=== PATIENT | male | born 1955 | race Caucasian/White ===

== ENCOUNTER → 2019-06-08 11:02 | Outpatient (CLI) | payer OTHER, SELFPAY ==
[2019-06-08 11:44] LABS: Absolute Lymphocyte Count 3.19 X10^3/uL (0.83-4.51); Absolute Neutrophil Count 4.6 X10^3/uL (2.0-7.7); Basophil# 0.03 X10^3/uL; Basophil% 0.4 % (0-1); Eosinophils% 1.2 % (0-5); Hematocrit 48.8 % (40-54); Hemoglobin 15.8 g/dL (13.0-16.5); Lymphocyte # 3.19 X10^3/ul (4.0); Lymphocyte % 37.2 % (19-41); Mean Corp Hgb Conc 32.4 g/dL (32-36); Mean Corpuscular Volume 86.4 fL (80-94); Mean Platelet Vol. 10.1 fl (6.2-12.0); Monocyte# 0.66 X10^3/uL; Monocyte% 7.7 % (0-10); NRBC Flagged by Analyzer 0 % (0-5); Neutrophil # 4.58 X10^3/uL (2.7-7.7); Neutrophil % 53.4 % (47-70); Platelet Count 224 K/mm3 (150-450); RBC Distribution Width CV 13.4 % (11.6-14.6); RBC Distribution Width SD 42.6 fl (35.1-43.9); Red Blood Count 5.65 M/mm3 (4.6-6.2); White Blood Count 8.6 K/mm3 (4.4-11.0)
[2019-06-08 11:55] LABS: AST(SGOT) 20 U/L (15-37); Alanine Aminotransfer ALT/SGPT 32 U/L (16-61); Albumin, Serum 3.7 g/dL (3.2-5.0); Alkaline Phosphatase 102 U/L (45-117); Anion Gap 4 (5-15); BUN 16 mg/dL (7-18); BUN/Creat Ratio 13.8 RATIO (10-20); Calcium,Total 8.9 mg/dL (8.5-10.1); Chloride 110 mmol/L (98-107); Cholesterol 209 mg/dL (200); Creatinine, Serum 1.16 mg/dL (0.70-1.30); EST Glomerular Filtration Rate 68 mL/min (>60); Est Glom Filt Rate - Afr Amer 82 mL/min (>60); Globulin 3.8 g/dL (2.2-4.2); Glucose 113 mg/dL (74-106); High Density Lipoprotein 32 mg/dL; Potassium 4.1 mmol/L (3.5-5.1); Protein, Total 7.5 g/dL (6.4-8.2); Sodium Level 141 mmol/L (136-145); Thyroid Stim Hormone (TSH) 1.38 uIU/mL (0.358-3.74); Triglycerides 138 mg/dL; Very Low Density Lipoprotein 28 mg/dL (5-40)
== END ==
PROVIDERS: Family Provider Family Medicine; PCP Family Medicine; Referring Provider Family Medicine; Visit Provider Family Medicine
DX: R53.82 Chronic fatigue, unspecified (principal)
CPT/HCPCS: 36415; 80053; 80061; 84443; 85025

== ENCOUNTER → 2020-01-31 16:39 | Outpatient (CLI) | payer OTHER, SELFPAY ==
[2020-01-31 18:36] LABS: Creatinine, Serum 1.24 mg/dL (0.70-1.30); EST Glomerular Filtration Rate 63 mL/min (>60); Est Glom Filt Rate - Afr Amer 76 mL/min (>60)
--- NOTE | 2020-02-01 | CYSPIN_PTH ---
PATIENT: HELENA HOLT II LOC: LAB U#:[id number] AGE/SX: 69/M ROOM: RE01/31/[address]: Dr. Jarad Lemus MD : [id number] BED: DIS: SPEC #: [id number] RECD: 02/02/20 09:28 STATUS: JAGRUTI RERan #: [id number] TORITO: 02/01/20 00:[address]: Jarad Lemus DEPT: CYTOLOGY RECD BY: Dc Pickard Tissues: Urine Procedures: Pap Stain (control) Special Stain Group II Cytospin Fluid HEADER OPERATION: Not noted PRE-OP DIAGNOSIS: N39.0, R10.9, R31.0, M54.5 TISSUE SUBMITTED: Urine for cytology DIAGNOSIS CYTOLOGY Urine for cytology (cytospin): A few clusters of mildly atypical urothelial cells noted. See comment. DONAVAN:sonia 02/03/20 COMMENT Clinical correlation and appropriate follow up are necessary. CYTOLOGY STUDY Slides are reviewed. CYTOLOGY GROSS Received is 60 ml of cloudy yellow fluid labeled with the patient's name and and designated per the requisition as urine. Submitted for cytology preparation. / sonia 02/02/20 TC:5 CPT: 48334
[2020-02-01 13:37] LABS: Cytology, Body Fluid / CSF SEE PATHOLOGY REPORT
== END ==
PROVIDERS: PCP Family Medicine; Visit Provider Family Medicine
DX: Z01.812 Encounter for preprocedural laboratory examination (principal); N39.0 Urinary tract infection, site not specified; R10.9 Unspecified abdominal pain; R31.0 Gross hematuria; M54.5 Low back pain
CPT/HCPCS: 36415; 82565; 87086; 87088; 88108; 88313

== ENCOUNTER → 2020-02-01 13:32 | Outpatient (CLI) | payer OTHER, SELFPAY | PROVIDERS: PCP Family Medicine; Referring Provider Family Medicine; Visit Provider Family Medicine | DX: N39.0 Urinary tract infection, site not specified (principal); R10.9 Unspecified abdominal pain; R31.0 Gross hematuria; M54.5 Low back pain | CPT/HCPCS: 87086 ==

== ENCOUNTER → 2020-02-17 14:45 | Outpatient (CLI) | payer OTHER, SELFPAY ==
--- NOTE | 2020-02-17 14:48 | CT_ITS ---
STUDY: CT ABDOMEN AND PELVIS WITH CONTRAST REASON FOR EXAM: Male, 64 years old. Right flank pain RADIATION DOSAGE (If Supplied By Facility): CTDIvol = ( 6.15 ) mGy, DLP = ( 1208.84 ) mGycm TECHNIQUE: Transaxial images were obtained from the dome of the diaphragm to the symphysis pubis with oral contrast. 100 ml of ISOVUE-300 contrast was administered. Sagittal and coronal images were reconstructed. Individualized dose optimization techniques were used for this CT. COMPARISON: None. FINDINGS: The visualized lung bases are clear. The visualized portions of the heart and pericardium are within normal limits. There are no calcified gallstones present. The liver is low in density, consistent with fatty infiltration. The spleen is normal in size. The pancreas is within normal limits. The adrenal glands are within normal limits. There are no renal or ureteral stones. There is no hydronephrosis. There is a 4.2 cm simple cyst in the right kidney. This is a benign lesion and no further follow-up is necessary. There are no left renal lesions. There are stones in the urinary bladder, measuring up to 9 mm. The prostate is enlarged, measuring 7.4 x 6.9 x 6.7 cm. Normal visualized stomach. There is no bowel obstruction or inflammation. The appendix is visualized and appears normal. The aorta is normal in caliber. There is no abdominal or pelvic free air, free fluid, fluid collection or lymphadenopathy. There are no destructive osseous lesions. There are degenerative changes noted in the spine. CT/Abdomen/Pelvis WITH Contrast IMPRESSION: No urinary calculi. No hydronephrosis. Stones in the urinary bladder measuring up to 9 mm. Enlarged prostate. No bowel obstruction or inflammation. Normal appendix. Fatty liver. Electronically Signed: Toi Sánchez, at 20:26 EDT Tel , Service support ,
== END ==
PROVIDERS: PCP Family Medicine; Referring Provider Family Medicine; Visit Provider Family Medicine
DX: R10.9 Unspecified abdominal pain (principal); M54.5 Low back pain
CPT/HCPCS: 74177; Q9967

== ENCOUNTER → 2020-03-01 11:15 | Outpatient (CLI) | payer OTHER, SELFPAY ==
[2020-03-01 13:34] LABS: PSA,Total - Annual Screen 5.03 ng/mL (0.00-4.00)
== END ==
PROVIDERS: PCP Family Medicine
DX: Z12.5 Encounter for screening for malignant neoplasm of prostate (principal)
CPT/HCPCS: 36415; 84153; G0103

== ENCOUNTER → 2021-01-17 11:18 | Outpatient (CLI) | payer OTHER, SELFPAY ==
[2021-01-17 11:56] LABS: PSA,Total - Annual Screen 5.03 ng/mL (0.00-4.00)
== END ==
LOC: PAVLAB 11:21
PROVIDERS: PCP Family Medicine
DX: Z12.5 Encounter for screening for malignant neoplasm of prostate (principal)
CPT/HCPCS: 36415; 84153; G0103

== ENCOUNTER → 2022-01-04 | Outpatient (CLI) | payer MEDICARE, OTHER, SELFPAY ==
[2022-01-04 12:45] LABS: PSA,Total- Diagnostic 3.78 ng/mL (0.0-4.0)
== END | disposition home or self-care (01) ==
LOC: PAVLAB 11:48
PROVIDERS: PCP Family Medicine
DX: R97.20 Elevated prostate specific antigen [PSA] (principal)
CPT/HCPCS: 36415; 84153

== ENCOUNTER → 2022-07-22 | Outpatient (CLI) | payer MEDICARE, OTHER, SELFPAY ==
[2022-07-22 10:46] LABS: PSA,Total- Diagnostic 3.34 ng/mL (0.0-4.0)
== END | disposition home or self-care (01) ==
LOC: PAVLAB 10:06
PROVIDERS: PCP Family Medicine
DX: R97.20 Elevated prostate specific antigen [PSA] (principal)
CPT/HCPCS: 36415; 84153

== ENCOUNTER 2022-12-20 17:37 | Emergency (ER) | payer MEDICARE, OTHER, SELFPAY ==
[2022-12-20 17:38] VITALS: BP 133/80; PULSE 69; RESP 18; TEMP 36.6; O2SAT 96; BMI 32.0
--- NOTE | 2022-12-20 18:26 | EX.ED.VIS.EY ---
HPI <INDIO Mclaughlin - Last Filed: 12/20/22 20:57> History of Present Illness Chief Complaint: Eye Problem Narrative Narrative: 3 days ago patient was working on a project and got sawdust in his right eye. He washed it out and has had no pain but woke up the next day and there was redness in the lower part of his eye. He has no discomfort, no visual changes, and no tearing or drainage. He does not wear glasses or contacts. PFSH <INDIO Mclaughlin - Last Filed: 12/20/22 20:57> PFS Medical History no medical history Allergy/AdvReac Type Severity Reaction Status Date / Time No Known Allergies Allergy Verified 12/20/22 17:38 Social History Smoking Status: Unknown if ever smoked ROS <INDIO Mclaughlin - Last Filed: 12/20/22 20:57> ROS ED ROS Narrative Constitutional: Negative for fever, chills, malaise. Eyes: Negative for visual change. Neuro: Negative for headache. Skin: Negative for rash. EXAM <INDIO Mclaughlin Last Filed: 12/20/22 20:57> Physical Exam Narrative Exam Narrative: CONST: Patient sitting in no acute distress. EYES: Subconjunctival hemorrhage on lower half of right eye. Otherwise normal inspection, PERRLA, EOMI, no chemosis or hyphema. No eyelid edema or erythema. ENT: Normal inspection. NECK: Normal inspection. RESP: No respiratory distress, CTAB. CVS: Regular rate and rhythm, no murmur, no gallop. SKIN: Color normal, no rash, warm, dry, intact. EXTREMITIES: Normal appearance, no pedal edema. NEURO: Oriented x4. PSYCH: Normal affect. Const Vital Signs: 12/20/22 17:38 Temperature 97.8 F Temperature Source Temporal Pulse Rate 69 Respiratory Rate 18 Blood Pressure 133/80 H Blood Pressure Mean 97 Pulse Ox 96 Oxygen Delivery Method Room Air MDM <INDIO Mclaughlin Last Filed: 12/20/22 20:57> [facility] MDM Narrative Medical decision making narrative: He states he got sawdust in the eye a few days ago and has no pain but was concerned about this redness. It is consistent with a right subconjunctival hemorrhage. I applied tetracaine and fluorescein stain and examined his eye under the slit-lamp. There is no foreign body or abnormality. He was reassured that this subconjunctival hemorrhage will go away without intervention but if symptoms develop to see an eye doctor. He was discharged in stable condition. <Dr. Luis Magaña MD - Last Filed: 12/20/22 23:46> [facility] Treatment and Re-Evaluation Narrative: I have personally performed a face to face assessment of the patient and have reviewed the CHRISTA Note. I performed a substantive portion of the visit including all aspects of the following. My cameron findings include: History: Patient stated he noticed redness on his right eye. But it does not hurt itch or bother him at all. No visual changes. He states yesterday he got some sawdust in there and washed it out but he thought everything was fine. He is not on any blood thinners. Exam: Exam shows a small to moderate subconjunctival hemorrhage on the right. Range of motion is normal. Pupillary function is normal. There is no discharge. No lid swelling. No vesicles. Medical Decision Making: We explained what this represents. Staining was done that showed no corneal abrasion. We discussed reasons to return Discharge Plan Triage Chief Complaint: Eye Problem ED Midlevel Provider: Thu Hadley ED Provider: Luis Magaña Dx/Rx/DC Orders Clinical Impression: Subconjunctival hemorrhage of right eye Instructions: ED Subconjunctival Hemorrhage Primary Care Provider: Jarad Lemus Referrals: Jarad Lemus MD [Primary Care Provider] - Activity Restrictions/Additional Instructions: There is no evidence of foreign body or scratches on your eye. You have a subconjunctival hemorrhage which is from burst blood vessels that will resolve over the next few days to weeks. Disposition Disposition: Home, Self Care Discharge Date/Time: 12/20/22 19:18
[2022-12-20] MEDS: Tetracaine 0.5% Ophthalmic Bottle 1 DRP LEFT EYE (18:37)
[2022-12-20] MEDS: Fluorescein 1 MG STRIP 1 STRIP RIGHT EYE (18:37)
== END 2022-12-20 19:18 | disposition home or self-care (01) ==
LOC: ED 19:04
PROVIDERS: Emergency Provider Emergency Medicine; PCP Family Medicine; Visit Provider Emergency Medicine
DX: H11.31 Conjunctival hemorrhage, right eye (principal); X58.XXXA Exposure to other specified factors, initial encounter; Y93.89 Activity, other specified
CPT/HCPCS: 92285; 99283

== ENCOUNTER 2023-07-25 14:48 | Emergency (ER) | payer MEDICARE, OTHER, SELFPAY ==
[2023-07-25 14:49] VITALS: BP 157/91; PULSE 60; RESP 16; TEMP 36.6; O2SAT 99; BMI 32.4
--- NOTE | 2023-07-25 14:57 | RAD_ITS ---
STUDY: X-RAY - RIGHT KNEE REASON FOR EXAM: Male, 67 years old. Trauma. TECHNIQUE: 4 views of the right knee. COMPARISON: None. FINDINGS: Normal visualized distal femur. Normal visualized proximal tibia and fibula. Normal proximal tibiofibular articulation. There is no demonstrated fracture. There is mild degenerative arthrosis of the medial femorotibial compartment. There is mild degenerative arthrosis of the lateral femorotibial compartment. There is mild degenerative arthrosis of the patellofemoral articulation. There is a small knee joint effusion. The soft tissue structures are unremarkable. RAD/Knee 4 or More Views IMPRESSION: Mild tricompartment degenerative arthrosis. Small knee joint effusion. Electronically Signed: Tae Beltran MD at 15:10 EST ,
--- NOTE | 2023-07-25 16:53 | EX.ED.DYSGE1 ---
HPI History of Present Illness Chief Complaint: Lower Extremity Injury [facility] Medical History (Updated 07/25/23 @ 16:46 by Faby Fontenot) BPH (benign prostatic hyperplasia) Home Medications finasteride 5 mg tablet 5 mg PO DAILY 07/25/23 [History Last Taken Unknown] Allergy/AdvReac Type Severity Reaction Status Date / Time No Known Allergies Allergy Verified 07/25/23 14:50 Social History Smoking Status: Unknown if ever smoked EXAM Physical Exam Const Vital Signs: 07/25/23 14:49 Temperature 97.8 F Temperature Source Temporal Pulse Rate 60 Respiratory Rate 16 Blood Pressure 157/91 H Blood Pressure Mean 113 Pulse Ox 99 Oxygen Delivery Method Room Air MDM MDM MDM Narrative Medical decision making narrative: HISTORY OF PRESENT ILLNESS: 67year-old male presents with right knee pain after mechanical fall at work. 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 Denies any history of surgery to the right knee. Denies any head trauma loss of consciousness. Denies any ankle or hip pain on the involved side. REVIEW OF SYSTEMS: Pertinent positives: Knee pain Pertinent negatives: Loss of sensation PHYSICAL EXAM: Nursing triage notes reviewed, Vital signs reviewed Constitutional: please see mdm HENT: MMM, no cephalhematoma or signs of trauma Eyes: Pupils equal round and reactive to light, Extraocular muscles intact Neck: No stridor, no JVD, full neck ROM Lungs: Clear to auscultation, No wheezing or rales. No increased work of breathing, no conversational dyspnea, no accessory muscle use, no nasal flaring. No respiratory distress noted Heart: Regular rate and rhythm, No murmurs, No rubs and No gallops, 2+ distal pulses (radial, femoral, posterior tibial) in all extremities Abdomen: Soft, there is no tenderness, rigidity, rebound or guarding, no obvious peritoneal signs, no palpable pulsatile abdominal masses, no auscultated abdominal bruit : Pelvis stable to compression Extremities: Large contusion noted to the medial aspect of the right knee. Right lower extremity neurovascularly intact. Compartments are soft. Difficult to assess ligamentous integrity given swelling and pain. Intact flexion extension internal/external rotation of bilateral hips. Back: No midline step-offs or deformities noted to the cervical thoracic or lumbar spine Neuro: N intact sensation L1-S1 dermatomal distributions. Intact 5/5 strength in hip flexion (T12-L3). Knee extension (L2-L4). Ankle dorsiflexion (L4-L5). Ankle plantar flexion (S1). Great toe extension (L5). 2+ patellar and Achilles DTRs. Skin: Bruising, ecchymosis noted to the right medial aspect of the knee MEDICAL DECISION MAKING: Chief Complaint: Knee pain External records reviewed: No recent advanced imaging of the involved extremity MDM Narrative: Patient was hemodynamically stable, afebrile, nontoxic-appearing. Exam with obvious contusion noted to the medial aspect of the right knee. Right lower extremity is neurovascularly intact. I considered the following differential diagnosis: Fracture, dislocation, contusion, knee sprain X-ray was obtained per triage protocol. I gave the patient oral pain medication ALL IMAGES (IF OBTAINED) HAVE BEEN PERSONALLY REVIEWED AND INTERPRETED BY MYSELF. X-ray of the patient's right knee was read reviewed myself shows no evidence of obvious fracture or dislocation. The patient is likely suffering from a knee sprain/knee contusion. He received a knee immobilizer, crutches. Crutches education. Will receive a prescription for oxycodone, orthopedic surgery follow-up for outpatient reevaluation and possible MRI The patient and/or family, caregivers express understanding. The patient and/or family, caregivers agrees with the plan. Shared decision making: I will have a discussion with the patient and or visitors regarding risk/benefits of further testing or admission. They will be made aware of of the risk/benefits inherent in this decision they will be given the opportunity to voice understanding. Total critical care time today provided was at least 0 minutes. This excludes separately billable procedures. Critical care time (if documented) is secondary to the patient having high probability of clinically significant/life threatening deterioration in the patient's condition which required my urgent intervention. Impression: 1. Knee contusion 2. Knee sprain Dispo: Discharge home This note was generated with [employer] dictation software. It may contain incorrect words, spelling, and punctuation that were not noted in review of the chart prior to signing. Radiography Diagnostic Testing: Clinical Impression(s) from Imaging Studies Knee X-Ray 07/25/23 14:57 IMPRESSION: Mild tricompartment degenerative arthrosis. Small knee joint effusion. Electronically Signed: Tae Beltran MD at 15:10 EST , Discharge Plan Triage Chief Complaint: Lower Extremity Injury ED Provider: Ryan Kuo Dx/Rx/DC Orders Prescriptions: No Action finasteride 5 mg tablet 5 mg PO DAILY Patient Comments: take 1 tablet by mouth once daily Primary Care Provider: Jarad Lemus Referrals: Jarad Lemus MD [Primary Care Provider] -
[2023-07-25] MEDS: Ibuprofen 200 MG Tablet 400 MG PO (16:59)
[2023-07-25] MEDS: Oxycodone/Apap 5/325 Tablet PO (16:59)
[2023-07-25 17:24] VITALS: BP 145/67; PULSE 69; RESP 12; TEMP 36.6; O2SAT 99
--- OUTSIDE RECORDS SUMMARY | 2023-07-25 17:51 | XMS RPT_ITS | CCD ---
Author Name Unknown Address [address] [place] [address] Organization [facility] Care Team Providers Care Manager Treasury Name Role Phone HELENA DIOP Admitting Unavailable HELENA DIOP Attending Unavailable NOAH ORLANDO Primary Care Unavailable RYAN JORDAN Consulting Unavailable Unavailable Primary Care Provider Unavaillissette e Unavailable Primary Care Provider Noah León MD Primary Care Provider MAITE PACHECO Referring Unavailabl e MAITE PACHECO Attending Giovaniabl e MAITE PACHECO Attending UnavailNOAH Lora Primary Care Unavailable MAITE PACHECO Attending Unavailabl e Medications Completed/Discontinued Medications Medication Drug Class(es) Dates Sig (Normalized) Sig (Original) aspirin 81 mg delayed release oral tablet (4 sources) Platelet Aggregation Inhibitor, Nonsteroidal Anti-inflammatory Drug aspirin, enteric coated (ASPIRIN, ENTERIC COATED) 81 mg EC tablet Take 81 mg by mouth. 0 Active Problems Problem Classification Problem Date Documented Da te Episodic/Chronic Calculus of urinary tract (6 sources) Urinary bladder stone; Translations: [Calculus in bladder] Onset: 01-28-2023 Episodic Esophageal disorders (1 source) Ulcer of esophagus without bleeding; Translations: [ULCER OF ESOPHAGUS WITHOUT BLEEDING] Onset: 07-13-2019 Chronic Genitourinary symptoms and ill-defined conditions (7 sources) Leo hematuria; Translations: [Gross hematuria] Onset: 07-30-2022 Episodic Hyperplasia of prostate (6 sources) Benign prostatic hyperplasia; Translations: [Benign prostatic hyperplasia with lower urinary tract symptoms] Onset: 01-28-2023 Chronic Other aftercare (1 source) 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; Translations: [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 CURRENT DRUG THERAPY] Onset: 07-13-2019 Episodic Other gastrointestinal disorders (1 source) Dysphagia, unspecified; Translations: [DYSPHAGIA UNSPECIFIED] Onset: 07-13-2019 Episodic Other screening for suspected conditions (not mental disorders or infectious disease) (6 sources) Raised prostate specific antigen; Translations: [Elevated prostate specific antigen [PSA]] Onset: 01-28-2023 Episodic Results Test Name Value Interpretation Reference Range Facil ity Vital Signs Date Time Vital Sign Value Performing Clinician Carlos abreu 02-12-2023 09:20-0400 Body height 182.9 cm Maite Pacheco MD Work Phone: [facility] 02-12-2023 09:20-0400 Diastolic blood pressure 68 mm[Hg] Maite Pacheco MD Work Phone: [facility] 02-12-2023 09:20-0400 Heart rate 67 /min Maite Pacheco MD Work Phone: [facility] 02-12-2023 09:20-0400 Systolic blood pressure 115 mm[Hg] Maite Pacheco MD Work Phone: [facility] 01-28-2023 10:48-0400 Body weight 105.23 kg Maite Pacheco MD Work Phone: [facility] 01-28-2023 10:48-0400 Diastolic blood pressure 82 mm[Hg] Maite Pacheco MD Work Phone: [facility] 01-28-2023 10:48-0400 Heart rate 70 /min Maite Pacheco MD Work Phone: [facility] 01-28-2023 10:48-0400 Systolic blood pressure 134 mm[Hg] Maite Pacheco MD Work Phone: [facility] 07-30-2022 09:22-0500 Body height 182.9 cm Maite Pacheco MD Work Phone: [facility] 07-30-2022 09:22-0500 Body weight 105.23 kg Maite Pacheco MD Work Phone: [facility] 07-30-2022 09:22-0500 Diastolic blood pressure 74 mm[Hg] Maite Pacheco MD Work Phone: [facility] 07-30-2022 09:22-0500 Systolic blood pressure 126 mm[Hg] Maite Pacheco MD Work Phone: [facility] Encounters Encounter Date Encounter Type Care Provider Facility Start: 02-12-2023 End: 02-12-2023 ambulatory MAITE PACHECO Facility:[id number] Start: 02-12-2023 End: 02-12-2023 Patient encounter procedure Maite Pacheco MD Work Phone: Urology Procedures Date Procedure Procedure Detail Performing Clinician Start: 02-12-2023 Urnls dip stick/tabl et rgnt auto w/o microscopy Maite Pacheco MD Work Phone: Start: 01-28-2023 BLADDER SCAN Maite Pacheco MD Work Phone: Start: 01-28-2023 Urnls dip stick/tabl et rgnt auto w/o microscopy Maite Pacheco MD Work Phone: Start: 07-30-2022 Urnls dip stick/tabl et rgnt auto w/o microscopy Maite Pacheco MD Work Phone: Start: 05-18-2021 PSA screening Plan of Treatment Date Care Activity Detail Author Start: 01-25-2028 PROSTATE CANCER SCREENING DISCUSSION PROSTATE CANCER SCREENING DISCUSSION [facility] Start: 05-18-2026 PROSTATE CANCER SCREENING DISCUSSION PROSTATE CANCER SCREENING DISCUSSION [facility] Start: 07-31-2023 End: 09-30-2023 Prostate specific Ag [Mass/volume] in Serum or Plasma PSA/PROSTSPECAG DIAG Lab Routine Elevated prostate specific antigen (PSA) Expected: 07/31/2023, Expires: 09/30/2023 [facility] Work Phone: Payers Date Payer Category Payer Private Health Insurance [facility] AARP SUPPLEMENT [id number] 2022-Present [phone] [address] [place] [address] [employer] [id number] 2022 Unknown [id number] 2021 Medicare MEDICARE MEDICAR E A AND B [id number] 2021-Present [phone] [place] [address] Medicare [id number] 2021 Medicare [id number] 1958 Unknown [id number] 1955 Unknown [id number] Social History Date Type Detail Facility Tobacco smoking stat [facility] Tobacco smoking consumption unknown [facility] Start: 1955 Sex Assigned At Not on file [facility] Start: 07-30-2022 Tobacco smoking stat [facility] Never smoked tobacco [facility] Start: 07-30-2022 Tobacco use and exposure Smokeless t obacco non-user [facility] Start: 07-30-2022 End: 02-12-2023 Alcohol intake Current drinker of alcohol (finding) [facility] Start: 07-30-2022 Alcohol Comment socially [facility] Start: 07-30-2022 End: 01-28-2023 History of Social function [facility] Start: 07-30-2022 End: 01-28-2023 Tobacco use panel [facility] National Score (1-10 0), lower number is lower risk 55 [facility] Clinical Notes 07-30-2022 to 02-12-2023 Maite Pacheco MD - 02/12/2023 10:03 AM Maite Marquez MD - 02/12/2023 9:59 AM Maite Marquez MD - 01/28/2023 11:32 AM EDT Note Date & Type Note Facility 02-12-2023 Note HNO ID: [id number] Author: Maite Pacheco MD Service: ? Author Type: Physician Type: Procedures Filed: 02/12/2023 10:07 AM Note Text: Procedure performed: Renal ultrasound/bladder ultrasound indication for procedure: Microscopic hematuria Description of procedure: Left kidney ultrasound was obtained and the kidney size was 10.9 x 4.9 cm No evidence of tumor stones or hydronephrosis Renal cortex is well-preserved The right kidney was also scanned, the size is 11.6 by a 5.3 cm No evidence of a tumor or stone Presence of enlarged cyst of 3.9 x 3.6 cm Renal cortex was well-preserved, no evidence of hydronephrosis Bladder ultrasound showed a postvoid residual urine of 33 mL With this is 40 mm height is 49 mm and length is 31 mm Final impression Right renal cyst Adequate bladder emptying Normal kidney ultrasound otherwise [facility] 02-12-2023 Note HNO ID: [id number] Author: Maite Pacheco MD Service: ? Author Type: Physician Type: Procedures Filed: 02/12/2023 10:07 AM Note Text: CYSTOSCOPY PROCEDURE NOTE : Helena Holt is a 67 year old male who presents with microscopic materia for cystoscopy. PRE-OP/PRE-PROCEDURE DIAGNOSIS: Microscopic hematuria POST-OP/POST-PROCEDURE DIAGNOSIS: No evidence of intravesical pathology presence of very large prostate and long prostatic urethra SURGERY/PROCEDURE(S): Cystoscopy Pt ID verified with patient: Yes Procedure verified with patient: Yes Procedure confirmed with physician and client support coordinator: Yes UNIVERSAL PROTOCOL / SAFETY CHECKLIST Procedure to be Performed: Cystoscopy Sign In: A Moment of CARE was completed. Personnel directly involved with the procedure wore the appropriate PPE (Personal Protective Equipment). Patient/Surrogate Stated/Verified: PATIENT VERIFIED(optional for EMERGENT procedures): Patient name, Date of , Relevant allergies, and The intended procedure Time Out Communication: Intended patient and procedure match the source documents. Consent documented and matches the intended procedure. Sign Out: SIGN OUT (optional for EMERGENT procedures): No specimen collected. Maite Pacheco MD A urinalysis was performed revealing no evidence of infection. The benefits, risks, alternatives of the cystoscopy procedure and personnel were discussed with the patient. The verbal consent was obtained and the patient agrees to proceed. Procedure: The patient was placed on the procedure table in the supine position and prepped and draped in the usual sterile fashion. 2% Lidocaine Jelly was placed per urethra as an anesthetic in the standard fashion. Once adequate local anesthesia was achieved, the tip of the flexible cystoscope was carefully placed into the urethra under direct visual guidance. The scope was negotiated through the pendulous urethra to the level of the bulbar urethra with no evidence of stricture. The verumontanum came into view and the scope was negotiated through the prostatic urethra which showed evidence of bi lobar occlusive disease. The bladder was entered and careful pena endoscopy was carried out. The posterior, superior and lateral rhodes and dome of the bladder were all well visualized and the scope was retroflexed upon itself. The findings were consistent with no evidence of bladder mucosal pathology. The findings were consistent with smooth, not trabeculated bladder. At the conclusion of the procedure, the flexible cystoscope was removed atraumatically. The patient tolerated the procedure without complications. Patient was given standard post-procedure instructions, and was directed to complete the course of oral antibiotics and increase oral fluid intake as directed. IMPRESSION: Enlarged lateral lobes of the prostate with a very long prostatic urethra No intravesical pathology PLAN: Continue Proscar and reevaluate in 6 months Maite Pacheco MD Electronically Signed: Maite Pacheco MD February 12, 2023 9:59 AM This note was partially created using voice recognition software and is inherently subject to errors including those of syntax and sound-alike substitutions which may escape proofreading. In such instances, original meaning may be extrapolated by contextual derivation. [facility] 02-12-2023 Procedure note Procedure performed: Renal ultrasound/bladder ultrasound indication for procedure: Microscopic hematuria Description of procedure: Left kidney ultrasound was obtained and the kidney size was 10.9 x 4.9 cm No evidence of tumor stones or hydronephrosis Renal cortex is well-preserved The right kidney was also scanned, the size is 11.6 by a 5.3 cm No evidence of a tumor or stone Presence of enlarged cyst of 3.9 x 3.6 cm Renal cortex was well-preserved, no evidence of hydronephrosis Bladder ultrasound showed a postvoid residual urine of 33 mL With this is 40 mm height is 49 mm and length is 31 mm Final impression Right renal cyst Adequate bladder emptying Normal kidney ultrasound otherwise CYSTOSCOPY PROCEDURE NOTE : Helena Holt is a 67 year old male who presents with microscopic materia for cystoscopy. PRE-OP/PRE-PROCEDURE DIAGNOSIS: Microscopic hematuria POST-OP/POST-PROCEDURE DIAGNOSIS: No evidence of intravesical pathology presence of very large prostate and long prostatic urethra SURGERY/PROCEDURE(S): Cystoscopy Pt ID verified with patient: Yes Procedure verified with patient: Yes Procedure confirmed with physician and client support coordinator: Yes UNIVERSAL PROTOCOL / SAFETY CHECKLIST Procedure to be Performed: Cystoscopy Sign In: A Moment of CARE was completed. Personnel directly involved with the procedure wore the appropriate PPE (Personal Protective Equipment). Patient/Surrogate Stated/Verified: PATIENT VERIFIED(optional for EMERGENT procedures): Patient name, Date of , Relevant allergies, and The intended procedure Time Out Communication: Intended patient and procedure match the source documents. Consent documented and matches the intended procedure. Sign Out: SIGN OUT (optional for EMERGENT procedures): No specimen collected. Maite Pacheco MD A urinalysis was performed revealing no evidence of infection. The benefits, risks, alternatives of the cystoscopy procedure and personnel were discussed with the patient. The verbal consent was obtained and the patient agrees to proceed. Procedure: The patient was placed on the procedure table in the supine position and prepped and draped in the usual sterile fashion. 2% Lidocaine Jelly was placed per urethra as an anesthetic in the standard fashion. Once adequate local anesthesia was achieved, the tip of the flexible cystoscope was carefully placed into the urethra under direct visual guidance. The scope was negotiated through the pendulous urethra to the level of the bulbar urethra with no evidence of stricture. The verumontanum came into view and the scope was negotiated through the prostatic urethra which showed evidence of bi lobar occlusive disease. The bladder was entered and careful pena endoscopy was carried out. The posterior, superior and lateral rhodes and dome of the bladder were all well visualized and the scope was retroflexed upon itself. The findings were consistent with no evidence of bladder mucosal pathology. The findings were consistent with smooth, not trabeculated bladder. At the conclusion of the procedure, the flexible cystoscope was removed atraumatically. The patient tolerated the procedure without complications. Patient was given standard post-procedure instructions, and was directed to complete the course of oral antibiotics and increase oral fluid intake as directed. IMPRESSION: Enlarged lateral lobes of the prostate with a very long prostatic urethra No intravesical pathology PLAN: Continue Proscar and reevaluate in 6 months Maite Pacheco MD Electronically Signed: Maite Pacheco MD February 12, 2023 9:59 AM This note was partially created using voice recognition software and is inherently subject to errors including those of syntax and sound-alike substitutions which may escape proofreading. In such instances, original meaning may be extrapolated by contextual derivation. documented in this encounter [facility] 01-28-2023 Note HNO ID: [id number] Author: Maite Pacheco MD Service: ? Author Type: Physician Type: Progress Notes Filed: 01/28/2023 4:48 PM Note Text: [facility] [place] ESTABLISHED PATIENT OFFICE VISIT HISTORY OF PRESENT ILLNESS Helena Holt is a 67 year old male who is here for follow up of elevated PSA and enlarged prostate Patient has had MRI of the prostate with the MRI /ultrasound fusion prostate needle biopsy in 2021 was negative Decipher test was positive at 40% Patient PSA is at 2.93 slightly lower than the one 6 months ago at around 3.2 Nocturia x2 good urinary stream Patient was found to have microscopic hematuria on today's urinalysis 2 years ago patient has had gross hematuria and CT scan showed normal upper tract and the cystoscopy showed bladder stones which were treated by lithotripsy He is also complaining of occasional right flank pain which comes and goes We will order a And Cystoscopy and Follow-Up with PSAs. Postvoid residual urine is 3 mL Review of Systems The remainder of the ROS was reviewed and is negative. LAB No results found for: CREAT GLUCOSE UA (POCT) (mg/dL) Date Value 01/28/2023 Negative BILIRUBIN UA (POCT) (no units) Date Value 01/28/2023 Negative KETONE UA (POCT) (mg/dL) Date Value 01/28/2023 Negative SPECIFIC GRAVITY UA (POCT) (no units) Date Value 01/28/2023 >=1.030 HEMOGLOBIN/BLOOD UA (POCT) (no units) Date Value 01/28/2023 Small (A) PH UA (POCT) (no units) Date Value 01/28/2023 5.5 PROTEIN UA (POCT) (mg/dL) Date Value 01/28/2023 Negative UROBILINOGEN UA (POCT) (E.U./dL) Date Value 01/28/2023 0.2 NITRITE UA (POCT) (no units) Date Value 01/28/2023 Negative LEUKOCYTES UA (POCT) (no units) Date Value 01/28/2023 Negative COLOR UA (POCT) (no units) Date Value 01/28/2023 Yellow CLARITY UA (POCT) (no units) Date Value 01/28/2023 Clear ] MEDICATIONS finasteride (PROSCAR) 5 mg tablet Take 1 tablet by mouth once daily. aspirin, enteric coated (ASPIRIN, ENTERIC COATED) 81 mg EC tablet Take 81 mg by mouth. 0 HISTORIES No past medical history on file. No past surgical history on file. No family history on file. SOCIAL HISTORY Social History Tobacco Use Smoking status: Never Smokeless tobacco: Never Substance Use Topics Alcohol use: Yes Comment: socially Drug use: Never BP 134/82 Pulse 70 Wt 105.2 kg (232 lb) BMI 31.46 kg/m? Physical Exam Alert cooperative in no acute distress Normocephalic Breathing not labored Mood is normal Rectal exam revealed a 50 g smooth nonnodular nontender prostate Anal tone is normal Legs are benign ASSESSMENT AND PLAN: No problem-specific Assessment AND Plan notes found for this encounter. ASSESSMENT/PLAN: 1. Microscopic hematuria - ICD9: 599.72, ICD10: R31.29 (primary diagnosis) - US KIDNEY/BLADDER - CYSTO.PANENDO 2. Benign prostatic hyperplasia with lower urinary tract symptoms, symptom details unspecified - ICD9: 600.01, ICD10: N40.1 On finasteride - BLADDER SCAN 3. Bladder stone - ICD9: 594.1, ICD10: N21.0 Status post cystolitholapaxy 4. Elevated prostate specific antigen (PSA) - ICD9: 790.93, ICD10: R97.20 - PSA/PROSTSPECAG RUDY Pacheco MD This note was partially created using voice recognition software and is inherently subject to errors including those of syntax and sound-alike substitutions which may escape proofreading. In such instances, original meaning may be extrapolated by contextual derivation. [facility] 01-28-2023 History of Presen t illness Narrative Images from the original note were not included. [facility] [place] ESTABLISHED PATIENT OFFICE VISIT HISTORY OF PRESENT ILLNESS Helena Holt is a 67 year old male who is here for follow up of elevated PSA and enlarged prostate Patient has had MRI of the prostate with the MRI /ultrasound fusion prostate needle biopsy in 2021 was negative Decipher test was positive at 40% Patient PSA is at 2.93 slightly lower than the one 6 months ago at around 3.2 Nocturia x2 good urinary stream Patient was found to have microscopic hematuria on today's urinalysis 2 years ago patient has had gross hematuria and CT scan showed normal upper tract and the cystoscopy showed bladder stones which were treated by lithotripsy He is also complaining of occasional right flank pain which comes and goes We will order a And Cystoscopy and Follow-Up with PSAs. Postvoid residual urine is 3 mL Review of Systems The remainder of the ROS was reviewed and is negative. LAB No results found for: CREAT GLUCOSE UA (POCT) (mg/dL) Date Value 01/28/2023 Negative BILIRUBIN UA (POCT) (no units) Date Value 01/28/2023 Negative KETONE UA (POCT) (mg/dL) Date Value 01/28/2023 Negative SPECIFIC GRAVITY UA (POCT) (no units) Date Value 01/28/2023 >=1.030 HEMOGLOBIN/BLOOD UA (POCT) (no units) Date Value 01/28/2023 Small (A) PH UA (POCT) (no units) Date Value 01/28/2023 5.5 PROTEIN UA (POCT) (mg/dL) Date Value 01/28/2023 Negative UROBILINOGEN UA (POCT) (E.U./dL) Date Value 01/28/2023 0.2 NITRITE UA (POCT) (no units) Date Value 01/28/2023 Negative LEUKOCYTES UA (POCT) (no units) Date Value 01/28/2023 Negative COLOR UA (POCT) (no units) Date Value 01/28/2023 Yellow CLARITY UA (POCT) (no units) Date Value 01/28/2023 Clear ] MEDICATIONS finasteride (PROSCAR) 5 mg tablet Take 1 tablet by mouth once daily. aspirin, enteric coated (ASPIRIN, ENTERIC COATED) 81 mg EC tablet Take 81 mg by mouth. 0 HISTORIES No past medical history on file. No past surgical history on file. No family history on file. SOCIAL HISTORY Social History Tobacco Use Smoking status: Never Smokeless tobacco: Never Substance Use Topics Alcohol use: Yes Comment: socially Drug use: Never BP 134/82 Pulse 70 Wt 105.2 kg (232 lb) BMI 31.46 kg/m Physical Exam Alert cooperative in no acute distress Normocephalic Breathing not labored Mood is normal Rectal exam revealed a 50 g smooth nonnodular nontender prostate Anal tone is normal Legs are benign ASSESSMENT & PLAN: No problem-specific Assessment & Plan notes found for this encounter. ASSESSMENT/PLAN: 1. Microscopic hematuria - ICD9: 599.72, ICD10: R31.29 (primary diagnosis) - US KIDNEY/BLADDER - CYSTO.PANENDO 2. Benign prostatic hyperplasia with lower urinary tract symptoms, symptom details unspecified - ICD9: 600.01, ICD10: N40.1 On finasteride - BLADDER SCAN 3. Bladder stone - ICD9: 594.1, ICD10: N21.0 Status post cystolitholapaxy 4. Elevated prostate specific antigen (PSA) - ICD9: 790.93, ICD10: R97.20 - PSA/PROSTSPECAG DIAG Maite Pacheco MD This note was partially created using voice recognition software and is inherently subject to errors including those of syntax and sound-alike substitutions which may escape proofreading. In such instances, original meaning may be extrapolated by contextual derivation. documented in this encounter [facility] 07-30-2022 Note HNO ID: [id number] Author: Maite Pacheco MD Service: ? Author Type: Physician Type: Procedures Filed: 07/30/2022 10:00 AM Note Text: Postvoid residual urine is 6 mL [facility] 07-30-2022 Note HNO ID: [id number] Author: Maite Pacheco MD Service: ? Author Type: Physician Type: Progress Notes Filed: 07/30/2022 10:00 AM Note Text: [facility] [place] ESTABLISHED PATIENT OFFICE VISIT HISTORY OF PRESENT ILLNESS Helena Holt is a 66 year old male who is here for follow up of elevated PSA. Patient denies any lower urinary tract symptoms. Happy with the finasteride. Denies gross hematuria. Recent PSA is at 3.34 performed on July 22, 2022. Postvoid residual urine is only 6 mL.. Review of Systems The remainder of the ROS was reviewed and is negative. LAB No results found for: CREAT GLUCOSE UA (POCT) (mg/dL) Date Value 07/30/2022 Negative BILIRUBIN UA (POCT) (no units) Date Value 07/30/2022 Negative KETONE UA (POCT) (mg/dL) Date Value 07/30/2022 Negative SPECIFIC GRAVITY UA (POCT) (no units) Date Value 07/30/2022 >=1.030 HEMOGLOBIN/BLOOD UA (POCT) (no units) Date Value 07/30/2022 Negative PH UA (POCT) (no units) Date Value 07/30/2022 5.5 PROTEIN UA (POCT) (mg/dL) Date Value 07/30/2022 Negative UROBILINOGEN UA (POCT) (E.U./dL) Date Value 07/30/2022 0.2 NITRITE UA (POCT) (no units) Date Value 07/30/2022 Negative LEUKOCYTES UA (POCT) (no units) Date Value 07/30/2022 Negative COLOR UA (POCT) (no units) Date Value 07/30/2022 Yellow CLARITY UA (POCT) (no units) Date Value 07/30/2022 Clear ] MEDICATIONS aspirin, enteric coated (ASPIRIN, ENTERIC COATED) 81 mg EC tablet Take 81 mg by mouth. finasteride (PROSCAR ORAL) Take 5 mg by mouth once daily. 0 HISTORIES History reviewed. No pertinent past medical history. History reviewed. No pertinent surgical history. History reviewed. No pertinent family history. SOCIAL HISTORY Social History Tobacco Use Smoking status: Never Smokeless tobacco: Never Substance Use Topics Alcohol use: Yes Comment: socially Drug use: Never BP 126/74 Ht 182.9 cm (6') Wt 105.2 kg (232 lb) BMI 31.46 kg/m? Physical Exam Alert cooperative in no acute distress, Normocephalic Rectal exam: 45 to 50 g firm nonnodular nontender prostate. Legs are benign. Anal tone is normal. ASSESSMENT AND PLAN: No problem-specific Assessment AND Plan notes found for this encounter. ASSESSMENT/PLAN: 1. Bladder stone - ICD9: 594.1, ICD10: N21.0 (primary diagnosis) Status post cystolitholopaxy doing well 2. Elevated prostate specific antigen (PSA) - ICD9: 790.93, ICD10: R97.20 Stable, patient has been taking finasteride for the last couple years. Previous MRI ultrasound fusion prostate needle biopsy was negative. Confirm MDX was positive at 42%. We will monitor patient's PSA and rectal findings - PSA/PROSTSPECAG DIAG 3-history of gross hematuria, cleared, it was due to bladder stones. CT urogram and cystoscopy were negative except for bladder stones back in 2019 4. Benign prostatic hyperplasia with lower urinary tract symptoms, symptom details unspecified - ICD9: 600.01, ICD10: N40.1 Symptoms much improved now with the use of finasteride Bladder scan showed a postvoid residual urine of only 6 mL. Maite Pacheco MD This note was partially created using voice recognition software and is inherently subject to errors including those of syntax and sound-alike substitutions which may escape proofreading. In such instances, original meaning may be extrapolated by contextual derivation. [facility] 07-30-2022 Procedure note Postvoid residual urine is 6 mL documented in this encounter [facility] 07-30-2022 History of Presen t illness Narrative Images from the original note were not included. [facility] [place] ESTABLISHED PATIENT OFFICE VISIT HISTORY OF PRESENT ILLNESS Helena Holt is a 66 year old male who is here for follow up of elevated PSA. Patient denies any lower urinary tract symptoms. Happy with the finasteride. Denies gross hematuria. Recent PSA is at 3.34 performed on July 22, 2022. Postvoid residual urine is only 6 mL.. Review of Systems The remainder of the ROS was reviewed and is negative. LAB No results found for: CREAT GLUCOSE UA (POCT) (mg/dL) Date Value 07/30/2022 Negative BILIRUBIN UA (POCT) (no units) Date Value 07/30/2022 Negative KETONE UA (POCT) (mg/dL) Date Value 07/30/2022 Negative SPECIFIC GRAVITY UA (POCT) (no units) Date Value 07/30/2022 >=1.030 HEMOGLOBIN/BLOOD UA (POCT) (no units) Date Value 07/30/2022 Negative PH UA (POCT) (no units) Date Value 07/30/2022 5.5 PROTEIN UA (POCT) (mg/dL) Date Value 07/30/2022 Negative UROBILINOGEN UA (POCT) (E.U./dL) Date Value 07/30/2022 0.2 NITRITE UA (POCT) (no units) Date Value 07/30/2022 Negative LEUKOCYTES UA (POCT) (no units) Date Value 07/30/2022 Negative COLOR UA (POCT) (no units) Date Value 07/30/2022 Yellow CLARITY UA (POCT) (no units) Date Value 07/30/2022 Clear ] MEDICATIONS aspirin, enteric coated (ASPIRIN, ENTERIC COATED) 81 mg EC tablet Take 81 mg by mouth. finasteride (PROSCAR ORAL) Take 5 mg by mouth once daily. 0 HISTORIES History reviewed. No pertinent past medical history. History reviewed. No pertinent surgical history. History reviewed. No pertinent family history. SOCIAL HISTORY Social History Tobacco Use Smoking status: Never Smokeless tobacco: Never Substance Use Topics Alcohol use: Yes Comment: socially Drug use: Never BP 126/74 Ht 182.9 cm (6') Wt 105.2 kg (232 lb) BMI 31.46 kg/m Physical Exam Alert cooperative in no acute distress, Normocephalic Rectal exam: 45 to 50 g firm nonnodular nontender prostate. Legs are benign. Anal tone is normal. ASSESSMENT & PLAN: No problem-specific Assessment & Plan notes found for this encounter. ASSESSMENT/PLAN: 1. Bladder stone - ICD9: 594.1, ICD10: N21.0 (primary diagnosis) Status post cystolitholopaxy doing well 2. Elevated prostate specific antigen (PSA) - ICD9: 790.93, ICD10: R97.20 Stable, patient has been taking finasteride for the last couple years. Previous MRI ultrasound fusion prostate needle biopsy was negative. Confirm MDX was positive at 42%. We will monitor patient's PSA and rectal findings - PSA/PROSTSPECAG DIAG 3-history of gross hematuria, cleared, it was due to bladder stones. CT urogram and cystoscopy were negative except for bladder stones back in 2019 4. Benign prostatic hyperplasia with lower urinary tract symptoms, symptom details unspecified - ICD9: 600.01, ICD10: N40.1 Symptoms much improved now with the use of finasteride Bladder scan showed a postvoid residual urine of only 6 mL. Maite Pacheco MD This note was partially created using voice recognition software and is inherently subject to errors including those of syntax and sound-alike substitutions which may escape proofreading. In such instances, original meaning may be extrapolated by contextual derivation. documented in this encounter [facility] Microscopic hematuria- Primary Benign prostatic hyperplasia with lower urinary tract symptoms, symptom details unspecified Bladder stone Other calculus in bladder Elevated prostate specific antigen (PSA) [facility] Diagnosis Benign prostatic hyperplasia with lower urinary tract symptoms, symptom details unspecified- Primary Elevated prostate specific antigen (PSA) Microscopic hematuria Bladder stone Other calculus in bladder [facility] Diagnostic Procedure Only (Routine) - Pending Review Specialty Diagnoses / Procedures Referred By Yolanda garvin Referred To Contact [facility] Diagnoses Microscopic hematuria Procedures US KIDNEY/BLADDER US RETROPERITONEAL REAL TIME W/IMAGE COMPLETE Maite Pacheco MD [address] [place] [address] [facility] [place] [id number] Referral ID Status Reason Start Date Expiration Date Visits Requested Visits Authorized [id number] Pending Review Auto-Generat ed Referral 01/28/2023 02/27/2024 1 1 [facility] Summary Purpose Family History No Family History Records FoundNo Family History Records FoundNo Family History Records FoundNo Family History Records FoundNo Family History Records Found Advance Directives No Advanced Directives Records FoundNo Advanced Directives Records FoundNo Advanced Directives Records FoundNo Advanced Directives Records FoundNo Advanced Directives Records Found Medications Administered Section Inactive Administered Medications - up to 3 most recent administrations Medication Order MAR Action Action Date Dose Rate Site lidocaine urojet 2 % 11 mL topical gel (GLYDO) 11 mL, URETHRAL, ONCE (UP TO 30 DAYS AMB), 1 dose, On Fri02/12/23 at 1030, FOR EXTERNAL USE ONLY APPLY TO: PENIS Given 02/12/2023 11:55 AM EDT 11 mL Additional Source Comments (unrecognized sect ion and content) No Status Records FoundNo Status Records FoundNo Status Records FoundNo Status Records FoundNo Status Records Found INFORMATION SOURCE (unrecogn ized section and content) DATE CREATED AUTHOR AUTHOR'S ORGANIZ ATION 09/06/2019 [facility] DATE CREATED AUTHOR AUTHOR'S ORGANIZ ATION 10/24/2019 [facility] DATE CREATED AUTHOR AUTHOR'S ORGANIZ ATION 08/01/2021 [facility] [place] DATE CREATED AUTHOR AUTHOR'S ORGANIZ ATION 02/13/2023 [facility] Source Comments (unrecognize d section and content) In the event this informatio n is protected by the Federal Confidentiality of Alcohol and Drug Abuse Patient Records regulations: The Federal rules restrict any use of the information to criminally investigate or prosecute any alcohol or drug abuse patient.[facility] the event this information is protected by the Federal Confidentiality of Alcohol and Drug Abuse Patient Records regulations: The Federal rules restrict any use of the information to criminally investigate or prosecute any alcohol or drug abuse patient.[facility] the event this information is protected by the Federal Confidentiality of Alcohol and Drug Abuse Patient Records regulations: The Federal rules restrict any use of the information to criminally investigate or prosecute any alcohol or drug abuse patient.[facility] the event this information is protected by the Federal Confidentiality of Alcohol and Drug Abuse Patient Records regulations: The Federal rules restrict any use of the information to criminally investigate or prosecute any alcohol or drug abuse patient.[facility] the event this information is protected by the Federal Confidentiality of Alcohol and Drug Abuse Patient Records regulations: The Federal rules restrict any use of the information to criminally investigate or prosecute any alcohol or drug abuse patient.[facility] the event this information is protected by the Federal Confidentiality of Alcohol and Drug Abuse Patient Records regulations: The Federal rules restrict any use of the information to criminally investigate or prosecute any alcohol or drug abuse patient.[facility] the event this information is protected by the Federal Confidentiality of Alcohol and Drug Abuse Patient Records regulations: The Federal rules restrict any use of the information to criminally investigate or prosecute any alcohol or drug abuse patient.[facility] Reason for Visit (unrecogniz ed section and content) Reason Onset Date Comments Refill Request 12/20/2022 Reason Comments Benign Prostatic Hypertrophy Reason Comments Cystoscopy-1 Kidney ultrasound Care Teams (unrecognized sec tion and content) FOR RECORDS PERTAINING TO PATIENTS WHO ARE OR HAVE BEEN ENROLLED IN A CHEMICAL DEPENDENCY/SUBSTANCEABUSE PROGRAM, SOME INFORMATION MAY BE OMITTED. This clinical summary was aggregated from multiple sources. Caution should be exercised in using it in the provision of clinical care. This summary normalizes information from multiple sources, and as a consequence, information in this document may materially change the coding, format and clinical context of patient data. In addition, data may be omitted in some cases. CLINICAL DECISIONS SHOULD BE BASED ON THE PRIMARY CLINICAL RECORDS. [employer] provides no warranty or guarantee of the accuracy or completeness of information in this document.
== END 2023-07-25 17:26 | disposition home or self-care (01) ==
PROVIDERS: Emergency Provider Emergency Medicine; PCP Family Medicine; Visit Provider Emergency Medicine
DX: S80.01XA Contusion of right knee, initial encounter (principal); Y93.89 Activity, other specified; W17.89XA Other fall from one level to another, initial encounter; Y92.89 Other specified places as the place of occurrence of the external cause; S83.91XA Sprain of unspecified site of right knee, initial encounter
CPT/HCPCS: 73564; 99285